=== PATIENT | female | born 1960 | race Caucasian/White ===

== ENCOUNTER → 2018-08-04 | Outpatient (CLI) | payer BC | LOC: MC.RAD 14:00 | DX: R92.0 Mammographic microcalcification found on diagnostic imaging of breast (principal) | CPT/HCPCS: G0279 ==

== ENCOUNTER 2018-11-10 19:52 | Emergency (ER) | payer BC ==
[~2018-11-10] VITALS: Ht 162.6 cm; Wt 58.2 kg
[2018-11-10 19:53] VITALS: TEMP 97.9
[2018-11-10] MEDS ORDERED: OMEGA-31 SGL PO (19:57)
[2018-11-10] MEDS ORDERED: VITAMIN B-625 MG (19:57)
[2018-11-10] MEDS ORDERED: PRINIVIL40 MG PO (19:57)
[2018-11-10] MEDS ORDERED: LEVOXYL0.1 MG PO (19:57)
[2018-11-10] MEDS ORDERED: CINNAMON OIL (19:58)
[2018-11-10 20:22] LABS: BASO % 0.4 % (0.0-2.0); EOS # 0.1 (0.0-0.7); EOS % 0.8 % (0-4.0); GRAN # 5.2 (1.4-6.5); GRAN % 71.1 % (42.2-75.2); HEMATOCRIT 42.1 % (37.0-47.0); HEMOGLOBIN 14.3 g/dl (12.5-16.0); LYMPH # 1.6 (1.2-3.4); LYMPH % 21.5 % (20.0-51.0); MEAN CELL VOLUME 93 fl (80.0-100.0); MEAN CORPUSCULAR HEMOGLOBIN 32 pg (27.0-31.0); MEAN CORPUSCULAR HGB CONC 34 g/dl (33.0-37.0); MONO # 0.4 (0.1-0.6); MONO % 5.9 % (1.7-9.3); PLATELET COUNT 299 K/mm3 (130-400); RED BLOOD COUNT 4.54 M/mm3 (4.10-5.30); REDCELL DISTRIBUTION WIDTH-CV 14.2 % (11.5-14.5)
[2018-11-10 20:34] LABS: ALANINE AMINOTRANSFERASE 19 U/L (9-52); ALKALINE PHOSPHATASE 58 U/L (50-136); ANION GAP 7 mmol/L (7-16); AST,SGOT 24 U/L (15-37); BILIRUBIN,TOTAL 0.2 mg/dL (0.0-1.0); BLOOD UREA NITROGEN 18 mg/dL (7-17); CALCIUM 9.3 mg/dL (8.4-10.2); CARBON DIOXIDE 28 mmol/L (22-30); CHLORIDE 106 mmol/L (98-107); CREATININE, serum 0.88 mg/dL (0.52-1.25); GLUCOSE 103 mg/dL (74-106); LIPASE 43 U/L (23-300); POTASSIUM 3.6 mmol/L (3.4-5.0); SODIUM 140 mmol/L (137-145); TOTAL PROTEIN 7.1 gm/dL (6.4-8.2)
[2018-11-10 20:37] LABS: C-REACTIVE PROTEIN < 0.5 mg/dL (0.0-0.9)
[2018-11-10 20:47] LABS: TROPONIN-I < 0.012 ng/mL (0.000-0.035)
[2018-11-10] MEDS ORDERED: PROTONIX 40MG T40 MG PO (22:49)
[2018-11-10 23:25] VITALS: BP 157/89; PULSE 65
== END 2018-11-10 23:25 | disposition home or self-care (01) ==
LOC: COL.ER 19:52
PROVIDERS: Emergency Medicine
DX: R07.89 Other chest pain (principal); I10 Essential (primary) hypertension; F17.210 Nicotine dependence, cigarettes, uncomplicated; E03.9 Hypothyroidism, unspecified

== ENCOUNTER → 2020-07-02 | Outpatient (CLI) | payer BC ==
[~2020-07-02] MED LIST: CINNAMON OIL; LEVOXYL0.1 MG PO; OMEGA-31 SGL PO; PRINIVIL40 MG PO; PROTONIX 40MG T40 MG PO; VITAMIN B-625 MG
== END ==
LOC: MC.RAD 14:03
DX: Z12.31 Encounter for screening mammogram for malignant neoplasm of breast (principal)

== ENCOUNTER → 2021-09-24 | Outpatient (CLI) | payer BC | LOC: MC.RAD 07-04 15:00 | DX: Z12.31 Encounter for screening mammogram for malignant neoplasm of breast (principal) ==

== ENCOUNTER 2022-01-19 10:59 | Emergency (ER) | payer BC ==
[~2022-01-19] VITALS: Ht 162.6 cm; Wt 66.8 kg
[2022-01-19 11:19] VITALS: TEMP 98
[2022-01-19 11:45] LABS: BASO # 0.1 K/mm3 (0.0-0.2); BASO % 0.7 % (0.0-2.0); EOS % 0.5 % (0.0-4.0); GRAN # 5.9 K/mm3 (1.4-6.5); GRAN % 70.5 % (42.2-75.2); HEMATOCRIT 45.6 % (37.0-47.0); HEMOGLOBIN 15.3 g/dl (12.5-16.0); LYMPH # 1.7 K/mm3 (1.2-3.4); LYMPH % 20.6 % (20.0-51.0); MEAN CELL VOLUME 93 fl (80.0-100.0); MEAN CORPUSCULAR HEMOGLOBIN 31 pg (27-31); MEAN CORPUSCULAR HGB CONC 34 g/dl (33.0-37.0); MONO # 0.6 K/mm3 (0.1-0.6); MONO % 7.5 % (1.7-9.3); PLATELET COUNT 360 K/mm3 (130-400); REDCELL DISTRIBUTION WIDTH-CV 13.9 % (11.5-14.5)
[2022-01-19] MEDS ORDERED: HCTZ 25MG TAB25 MG PO (11:59)
[2022-01-19] MEDS ORDERED: LEVOXYL0.088 MG PO (11:59)
[2022-01-19] MEDS ORDERED: PRINIVIL20 MG PO (11:59)
[2022-01-19] MEDS ORDERED: CELEXA 20MG20 MG/TAB PO (12:00)
[2022-01-19] MEDS ORDERED: K-DUR20 MEQ PO (12:00)
[2022-01-19] MEDS ORDERED: ATIVAN 1MG T1 MG/TAB PO (12:01)
[2022-01-19 12:11] LABS: ALANINE AMINOTRANSFERASE 16 U/L (0-55); ALBUMIN 4.3 gm/dL (3.4-4.8); ALKALINE PHOSPHATASE 56 U/L (40-150); ANION GAP 13 mmol/L (7-16); AST,SGOT 22 U/L (5-34); BILIRUBIN,TOTAL 0.4 mg/dL (0.2-1.2); BLOOD UREA NITROGEN 11 mg/dL (10-20); CALCIUM 9.7 mg/dL (8.4-10.2); CARBON DIOXIDE 24 mmol/L (23-31); CHLORIDE 102 mmol/L (98-107); CREATININE, serum 0.89 mg/dL (0.57-1.11); GLUCOSE 120 mg/dL (70-99); POTASSIUM 3.7 mmol/L (3.5-4.5); SODIUM 139 mmol/L (136-145); TOTAL PROTEIN 7.9 gm/dL (6.2-8.1)
[2022-01-19 12:29] LABS: TROPONIN-I < 0.010 ng/mL (0.00-0.033)
[2022-01-19 13:05] VITALS: BP 143/86; PULSE 70
== END 2022-01-19 13:07 | disposition home or self-care (01) ==
LOC: COL.ER 10:59
PROVIDERS: Emergency Medicine
DX: R42 Dizziness and giddiness (principal); R63.0 Anorexia; Z87.891 Personal history of nicotine dependence; Z28.310 Unvaccinated for COVID-19
CPT/HCPCS: J7040

== ENCOUNTER 2022-03-20 13:05 | Emergency (ER) | payer BC ==
[~2022-03-20] VITALS: Ht 162.6 cm; Wt 65.9 kg
[~2022-03-20 13:05] MED LIST changes: +ATIVAN 1MG T1 MG/TAB PO; +CELEXA 20MG20 MG/TAB PO; +HCTZ 25MG TAB25 MG PO; +K-DUR20 MEQ PO; +LEVOXYL0.088 MG PO; +PRINIVIL20 MG PO
[2022-03-20 13:08] VITALS: TEMP 97.8
[2022-03-20 14:14] LABS: BASO % 0.3 % (0.0-2.0); EOS % 0.3 % (0.0-4.0); GRAN # 5.1 K/mm3 (1.4-6.5); HEMATOCRIT 40.9 % (37.0-47.0); HEMOGLOBIN 14.2 g/dl (12.5-16.0); LYMPH # 1.2 K/mm3 (1.2-3.4); LYMPH % 17.6 % (20.0-51.0); MEAN CELL VOLUME 91 fl (80.0-100.0); MEAN CORPUSCULAR HEMOGLOBIN 32 pg (27-31); MEAN CORPUSCULAR HGB CONC 35 g/dl (33.0-37.0); MEAN PLATELET VOLUME 9.8 fl (7.4-10.4); MONO # 0.4 K/mm3 (0.1-0.6); MONO % 6.4 % (1.7-9.3); PLATELET COUNT 316 K/mm3 (130-400); RED BLOOD COUNT 4.49 M/mm3 (4.10-5.30)
[2022-03-20 14:36] LABS: ALBUMIN 3.5 gm/dL (3.4-4.8); BILIRUBIN,TOTAL 0.2 mg/dL (0.2-1.2); CALCIUM 8.9 mg/dL (8.4-10.2); CREATININE, serum 0.75 mg/dL (0.57-1.11); POTASSIUM 3.5 mmol/L (3.5-4.5); TOTAL PROTEIN 6.7 gm/dL (6.2-8.1)
[2022-03-20 14:48] LABS: TSH w REFLEX 4.312 uIU/mL (0.350-4.940)
[2022-03-20 15:44] VITALS: BP 148/82; PULSE 66
== END 2022-03-20 15:45 | disposition home or self-care (01) ==
LOC: COL.ER 13:05
PROVIDERS: Physician Assistant
DX: F41.9 Anxiety disorder, unspecified (principal); R51.9 Headache, unspecified; Z28.310 Unvaccinated for COVID-19
CPT/HCPCS: J0780; J1885